=== PATIENT | male | born 1955 | race Caucasian/White ===

== ENCOUNTER 2021-07-13 08:15 | Emergency (ER) | payer MEDICARE ==
[~2021-07-13] VITALS: Ht 170.2 cm; Wt 73.7 kg
[2021-07-13 09:21] VITALS: BP 155/92
== END 2021-07-13 09:30 | disposition short-term general hospital (02) ==
LOC: ED 08:15
DX: T18.128A Food in esophagus causing other injury, initial encounter (principal); F17.290 Nicotine dependence, other tobacco product, uncomplicated

== ENCOUNTER → 2021-08-03 | Outpatient (CLI) | payer MEDICARE | LOC: RAD 08:18 | DX: C85.90 Non-Hodgkin lymphoma, unspecified, unspecified site (principal); R16.1 Splenomegaly, not elsewhere classified; N42.83 Cyst of prostate; D72.820 Lymphocytosis (symptomatic) | CPT/HCPCS: Q9967 ==

== ENCOUNTER → 2021-11-30 | Outpatient (CLI) | payer MEDICARE ==
[~2021-11-30] MED LIST: LOSARTAN POTASS50 M1; MEDROL DOSEPAK4 MG PO; NORCO 325 MG-51 TA1 PO
== END ==
LOC: RAD 07:39
DX: C91.10 Chronic lymphocytic leukemia of B-cell type not having achieved remission (principal)
CPT/HCPCS: Q9967